=== PATIENT | female | born 1935 | race Caucasian/White ===

== ENCOUNTER → 2018-12-25 | Outpatient (CLI) | payer MEDICARE ==
--- NOTE | 2018-12-25 13:13 | Diagnostic Imaging Report ---
Exam: KUB Clinical history: History of UTI Findings: There is nonobstructive bowel gas pattern with retained feces in the colon. No radiopaque stones are noted along the course of bilateral renal collecting systems. Degenerative changes of the upper lumbar spine are noted. Signed by: Dr. Dave Montenegro MD on 12/25/2018 1:10 PM
--- NOTE | 2018-12-25 13:25 | Diagnostic Imaging Report ---
Renal ultrasound Clinical History: UTI Discussion: Sonographic evaluation of the kidneys is performed. The kidneys have normal size and cortical echogenicity. The right kidney measures 9.2 cm in length. The left kidney measures 10.9 cm in length. There is no hydronephrosis or shadowing renal calculus. In the interpolar region right kidney, a 2.8 x 1.8 x 2.9 cm anechoic lesion is noted. In the interpolar region left kidney, a 2.6 x 1.3 x 2.5 cm anechoic lesion is also noted. These are most compatible with cysts. No perinephric fluid collection is seen. Survey images of the bladder demonstrate no abnormality. Impression: 1. Bilateral renal cysts, otherwise, unremarkable renal ultrasound. Signed by: Dr. Dave Montenegro MD on 12/25/2018 1:22 PM
== END ==
LOC: US 11:55
PROVIDERS: ATTEND Urology
DX: N39.0 Urinary tract infection, site not specified (principal)
CPT/HCPCS: 74018; 76770

== ENCOUNTER 2019-02-03 11:48 | Inpatient (IN) | payer MEDICARE ==
[2019-01-31 14:30] LABS: BASOPHILS % 0.5 % (0.0-1.0); EOSINOPHILS # (AUTO) 0.1 (0.0-0.4); EOSINOPHILS % 2.3 % (0.0-6.0); HEMATOCRIT 31.4 % (34.2-44.1); LYMPHOCYTES # (AUTO) 0.9 (1.0-3.2); MEAN CORPUSCULAR HEMOGLOBIN 27.6 pg (28-32); MEAN CORPUSCULAR HGB CONC 31.8 g/dL (31-35); MEAN CORPUSCULAR VOLUME 86.7 fL (81-99); MONOCYTES # (AUTO) 0.4 (0.2-0.8); MONOCYTES % 9.4 % (4.4-11.3); NEUTROPHILS # (AUTO) 2.9 (2.1-6.9); NEUTROPHILS % 66.6 % (38.7-80.0); PLATELET COUNT 221 x10e3/uL (140-360); RED BLOOD COUNT 3.62 x10e6/uL (3.6-5.1); RED CELL DISTRIBUTION WIDTH 14.6 % (11.7-14.4)
[2019-01-31 14:49] LABS: ANION GAP 11.6 mmol/L (8-16); BLOOD UREA NITROGEN 8 mg/dL (7-26); BUN/CREATININE RATIO 10 (6-25); CALCIUM 8.8 mg/dL (8.4-10.2); CARBON DIOXIDE 26 mmol/L (22-29); CHLORIDE 104 mmol/L (98-107); CREATININE, SERUM 0.79 mg/dL (0.57-1.11); EST GLOMERULAR FILTRATION RATE > 60 ML/MIN (60-); GLUCOSE 83 mg/dL (74-118); POTASSIUM 3.6 mmol/L (3.5-5.1); SODIUM 138 mmol/L (136-145)
--- NOTE | 2019-01-31 15:30 | Diagnostic Imaging Report ---
EXAMINATION: CHEST 2 VIEWS INDICATION: Preop COMPARISON: None FINDINGS: TUBES and LINES: None. LUNGS: Lungs are well inflated. Lungs are clear. There is no evidence of pneumonia or pulmonary edema. PLEURA: No pleural effusion or pneumothorax. HEART AND MEDIASTINUM: The cardiomediastinal silhouette is unremarkable. There are atherosclerotic calcifications within the aorta. BONES AND SOFT TISSUES: There are degenerative changes in the spine and shoulders. Soft tissues are unremarkable. UPPER ABDOMEN: No free air under the diaphragm. IMPRESSION: No acute thoracic radiographic abnormality. Signed by: Benton Pop DO on 01/31/2019 3:27 PM
[~2019-02-03] VITALS: Ht 157.5 cm; Wt 68.0 kg
[~2019-02-03 11:48] MED LIST: AMIODARONE HCL200 MG PO; ATIVAN1 MG PO; CYMBALTA30 MG PO; DOXAZOSIN MESYLA2 MG PO; LEVOTHYROXINE75 MCG PO; METOPROLOL TART25 MG PO; PRIMIDONE1 GM PO; XARELTO20 MG PO
--- OUTSIDE RECORDS SUMMARY | 2019-02-03 11:51 | XMS REPORT ---
Author Author [facility] Address Unknown Phone Unavailable Care Team Providers Care Molding Line Operator Name Role Phone NUBIA PORTER Unavailable Unavailable Problems This patient has no known problems. Allergies, Adverse Reactions, Alerts This patient has no known allergies or adverse reactions. Medications This patient has no known medications. Results Test Description Test Time Test Comments Text Results Atomic Results Result Comments CHEST 2 VIEWS 2019-01-31 15:25:00 [facility] [address] [place] [address] Patient Name: NAI HEWITT MR #: [id number] : 1935 Age/Sex: 83/F Req #: [id number] [facility] Physician: Ordered by: NUBIA PORTER MD Report #: [id number] Location: OR Room/Bed: Procedure: [id number] DX/CHEST 2 VIEWS Exam Date: 01/31/19 Exam Time: 1429 REPORT STATUS: Signed EXAMINATION: CHEST 2 VIEWS INDICATION: Preop COMPARISON: None FINDINGS: TUBES and LINES: None. LUNGS: Lungs are well inflated. Lungs are clear. There is no evidence of pneumonia or pulmonary edema. PLEURA: No pleural effusion or pneumothorax. HEART AND MEDIASTINUM: The cardiomediastinal silhouette is unremarkable. There are atherosclerotic calcifications within the aorta. BONES AND SOFT TISSUES: There are degenerative changes in the spine and shoulders. Soft tissues are unremarkable. UPPER ABDOMEN: No free air under the diaphragm. IMPRESSION: No acute thoracic radiographic abnormality. Signed by: Benton Pop DO on 01/31/2019 3:27 PM Dictated By: BENTON POP DO 26 Transcribed By: SUZETTE on 01/31/191526 COPY TO: NUBIA PORTER MD US RENAL RETROPERITONEAL COMP 2018-12-25 13:21:00 [place] [address] Patient Name: NAI HEWITT MR #: [id number] : 1935 Age/Sex: 83/F Req #: [id number] Adm Physician: Ordered by: NUBIA PORTER MD Report #: [id number] Location: US Room/Bed: Procedure: [id number] US/US RENAL RETROPERITONEAL COMP Exam Date: Exam Time: REPORT STATUS: Signed Renal ultrasound Clinical History: UTI Discussion: Sonographic evaluation of the kidneys is performed. The kidneys have normal size and cortical echogenicity. The right kidney measures 9.2 cm in length. The left kidney measures 10.9 cm in length. There is no hydronephrosis or shadowing renal calculus. In the interpolar region right kidney, a 2.8 x 1.8 x 2.9 cm anechoic lesion is noted. In the interpolar region left kidney, a 2.6 x 1.3 x 2.5 cm anechoic lesion is also noted. These are most compatible with cysts. No perinephric fluid collection is seen. Survey images of the bladder demonstrate no abnormality. Impression: 1. Bilateral renal cysts, otherwise, unremarkable renal ultrasound. Signed by: Dr. Dave Montenegro MD on 12/25/2018 1:22 PM Dictated By: SAMANTHA MONTENEGRO MD 21 Transcribed By: SUZETTE on 12/25/181321 COPY TO: NUBIA PORTER MD ABDOMEN-1VIEW (KUB) 2018-12-25 13:07:00 [place] [address] Patient Name: NAI HEWITT MR #: [id number] : 1935 Age/Sex: 83/F Req #: [id number] Adm Physician: Ordered by: NUBIA PORTER MD Report #: [id number] Location: Room/Bed: Procedure: [id number] DX/ABDOMEN-1VIEW (KUB) Exam Date: 12/25/18 Exam Time: 1155 REPORT STATUS: Signed Exam: KUB Clinical history: History of UTI Findings: There is nonobstructive bowel gas pattern with retained feces in the colon. No radiopaque stones are noted along the course of bilateral renal collecting systems. Degenerative changes of the upper lumbar spine are noted. Signed by: Dr. Dave Montenegro MD on 12/25/2018 1:10 PM Dictated By: MARINA MONTENEGRO MD 09 Transcribed By: SUZETTE on 12/25/181309 COPY TO: NUBIA PORTER MD
[2019-02-03] MEDS ORDERED: GENTAMICIN 80MG/NS 100 ML 100 ML IV ONE (11:56)
[2019-02-03] MEDS ORDERED: PIPER-TAZ 3.375 GM 50 ML ONE (11:56)
[2019-02-03] MEDS ORDERED: DEXAMETHASONE SOD PHOS INJ 4 MG/ML VIAL ONE (12:53)
[2019-02-03] MEDS ORDERED: ONDANSETRON HCL INJ 2MG/ML 2ML 2 MG/ML VIAL ONE (12:53)
[2019-02-03] MEDS ORDERED: SEVOFLURANE INHAL SOLN 250 ML PEN BTL ONE (12:53)
[2019-02-03] MEDS ORDERED: ACETAMINOPHEN 1000 MG/100 ML IV ONE (12:53)
[2019-02-03] MEDS ORDERED: PROPOFOL IV EMULSION 10 MG/ML 20 ML VIAL ONE (12:53)
[2019-02-03] MEDS ORDERED: EPHEDRINE SULFATE INJ 50 MG/ML VIAL ONE (12:53)
[2019-02-03] MEDS ORDERED: LIDOCAINE HCL 2% LOCAL INJ 5 ML SDV VIAL INJ ONE (12:53)
[2019-02-03] MEDS ORDERED: BUPIVACAINE 0.5%/EPI 30 ML SDV INJ ONE (13:26)
[2019-02-03] MEDS ORDERED: IOPAMIDOL 300MG/ML 50ML INFUS..BTL IV ONE (13:26)
[2019-02-03] MEDS ORDERED: BUPIVACAINE 0.25% 30ML SDV INJ ONE (13:26)
[2019-02-03] MEDS ORDERED: BACITRACIN 50,000 UNIT VIAL ONE (13:27)
[2019-02-03] MEDS ORDERED: FENTANYL CITRATE/PF 100MCG/2 ML INJ ONE (14:45)
[2019-02-03] MEDS: D5.45%NS/KCL 20MEQ 1,000 ML IV SCH (16:59)
[2019-02-03] MEDS ORDERED: ONDANSETRON HCL INJ 2MG/ML 2ML 2 MG/ML VIAL IV PRN (17:00)
[2019-02-03] MEDS ORDERED: MORPHINE SULFATE 1 MG/ML 30ML PCA IV PRN (17:00)
[2019-02-03] MEDS ORDERED: DIPHENHYDRAMINE HCL 25 MG CAP PO PRN (17:00)
[2019-02-03] MEDS: DOCUSATE SODIUM 100 MG CAP PO SCH (17:00)
[2019-02-03] MEDS ORDERED: NALOXONE HCL INJ 0.4 MG/ML AMP IV PRN (17:00)
[2019-02-03 18:19] VITALS: BP 171/74
[2019-02-03 18:20] VITALS: BP 171/74
--- NOTE | 2019-02-03 18:29 | NUR ---
ARRIVED VIA STRETCHER FROM PACU, AA&OX3, RA, IV INTACT, CEMENT MIXER DRIVER IN USE, VERIFIED WITH PACU NURSE, ABD PAIN 7 AT THIS TIME, ABD DRESSING INTACT, CIRCULAR AREA OF BLOODY DRAINAGE NOTED, VAGINAL PACKING NOTED, 22FR TAYLOR TO BSD WITH CLEAR YELLOW URINE NOTED, BILAT SCD'S IN PLACE, ORIENTED TO ROOM AND CALL LIGHT SYSTEM, CALL LIGHT WITHIN REACH, FAMILY AT SIDE
--- NOTE | 2019-02-03 19:00 | NUR ---
RECEIVED PATIENT IN BEDSIDE REPORT. PATIENT RESTING IN BED, STATES PAIN IS 6/10. DEMONSTRATED USE OF BARREL BURNER PUMP. BARREL BURNER PUMP 2-NURSE CHECK DONE. TAYLOR DRAINING CLEAR, YELLOW URINE. AREA OF BLEEDING TO LOWER ABD DRESSING CIRCLED, WILL CONTINUE TO MONITOR. NO S&S OF DISTRESS NOTED. BED LOCKED IN LOWEST POSITION, SIDE RAILS UPX2, CALL LIGHT IN REACH.
[2019-02-03 20:00] VITALS: BP 135/63
--- NOTE | 2019-02-03 21:00 | NUR ---
DRESSING TO LOWER ABD CHECKED, NEW BLEEDING NOTED AROUND CIRCLED AREA. CIRCLED NEW AREA. REINFORCED DRESSING WITH 4X4 AND TAPE TO INCREASE PRESSURE ON INCISION. WILL CONTINUE TO MONITOR.
[2019-02-03 21:19] VITALS: BP 135/63
[2019-02-03] MEDS: PIPERACILLIN/TAZO 2.25 GM 50 ML IV SCH (22:36)
[2019-02-04] VITALS (8 sets, daily range): BP systolic 91–115; BP diastolic 44–63
[2019-02-04] MEDS: D5.45%NS/KCL 20MEQ 1,000 ML IV SCH (04:22)
[2019-02-04 05:30] LABS: BASOPHILS % 0.1 % (0.0-1.0); HEMATOCRIT 30.6 % (34.2-44.1); HEMOGLOBIN 9.5 g/dL (12.0-16.0); LYMPHOCYTES # (AUTO) 0.4 (1.0-3.2); LYMPHOCYTES % 5.1 % (18.0-39.1); MEAN CORPUSCULAR HEMOGLOBIN 27.4 pg (28-32); MEAN CORPUSCULAR VOLUME 88.2 fL (81-99); MONOCYTES # (AUTO) 0.4 (0.2-0.8); MONOCYTES % 4.7 % (4.4-11.3); NEUTROPHILS # (AUTO) 7.1 (2.1-6.9); NEUTROPHILS % 89.7 % (38.7-80.0); PLATELET COUNT 181 x10e3/uL (140-360); RED BLOOD COUNT 3.47 x10e6/uL (3.6-5.1); RED CELL DISTRIBUTION WIDTH 14.6 % (11.7-14.4)
[2019-02-04] MEDS: PIPERACILLIN/TAZO 2.25 GM 50 ML IV SCH ×3 (06:18→22:23)
[2019-02-04 07:01] LABS: ANION GAP 11.3 mmol/L (8-16); CALCIUM 8.3 mg/dL (8.4-10.2); CREATININE, SERUM 0.9 mg/dL (0.57-1.11); POTASSIUM 4.3 mmol/L (3.5-5.1)
--- NOTE | 2019-02-04 07:07 | NUR ---
walking rounds completed with shift lab technician RN, pt has no complaints at this time, no signs of distress. will continue to monitor.
[2019-02-04] MEDS: DOCUSATE SODIUM 100 MG CAP PO SCH ×2 (09:59→16:49)
[2019-02-04] MEDS: AMIODARONE HCL 200 MG TAB PO SCH (09:59)
[2019-02-04] MEDS: METOPROLOL TARTRATE 25 MG TAB PO SCH ×2 (10:00→16:49)
[2019-02-04] MEDS: DULOXETINE HCL 30 MG DELAYED RELEASE PO SCH (10:00)
[2019-02-04] MEDS: SODIUM CHLORIDE 0.9% 1000ML 1,000 ML IV SCH ×2 (10:01→22:23)
[2019-02-04] MEDS: ACETAMINOPHEN/CODEINE 300MG - 30MG TAB PO PRN ×3 (13:04→21:29)
--- NOTE | 2019-02-04 13:30 | NUR ---
Visit made by the Spiritual Care Department Pastoral Visitor, Erika Hastings. PV provided pastoral presence, prayer, hospitality, and supportive listening. Pastoral Visitor informed pt/family of the scope of [employer] and availability. HANK CUNNINGHAM Guest Service Representative Spiritual Care Department O: [phone] Pager: [phone] ([phone] number calling from)
--- NOTE | 2019-02-04 15:51 | NUR ---
pt c/o nausea and upper abd cramping; will give Zofran. pt states she feels like it is indigestion with frequent burping of gas. will continue to monitor.
--- NOTE | 2019-02-04 16:00 | NUR ---
vaginal packing removed per MD's orders. pt tolerated well.
--- NOTE | 2019-02-04 16:39 | NUR ---
Spoke to patient and ASHLEY selby, concerned about returning home alone with lugo. Spoke to Dr. Velázquez, order for HH received. In network facilities given to patient, patient [facility] faxed to [phone] Addendum: 02/04/19 at 1640 by Josy Ray conf received
--- NOTE | 2019-02-04 19:00 | NUR ---
RECEIVED PATIENT IN BEDSIDE REPORT. PATIENT REPORTS PAIN IS 7/10 IN HER ABDOMEN, BUT LESSENS EACH TIME SHE PASSES GAS. TAYLOR DRAINING CLEAR, YELLOW URINE TO GRAVITY. DRESSING TO ABDOMEN HAS NO CHANGES SINCE YESTERDAY, DRIED BLOOD NOTED, NO NEW BLOOD NOTED. IV TO R FA ASYMPTOMATIC, INTACT, AND PATENT RUNNING NS @ 100ML/HR. BED LOCKED IN LOWEST POSITION, SIDE RAILS UPX2, CALL LIGHT IN REACH.
[2019-02-04] MEDS: LEVOTHYROXINE SODIUM 75 MCG TAB PO SCH (20:38)
[2019-02-05] VITALS (9 sets, daily range): BP systolic 96–145; BP diastolic 46–73
[2019-02-05] MEDS: ACETAMINOPHEN/CODEINE 300MG - 30MG TAB PO PRN ×3 (03:10→17:11)
[2019-02-05 05:24] LABS: BASOPHILS % 0.2 % (0.0-1.0); EOSINOPHILS # (AUTO) 0.1 (0.0-0.4); EOSINOPHILS % 0.9 % (0.0-6.0); HEMATOCRIT 27.3 % (34.2-44.1); HEMOGLOBIN 8.2 g/dL (12.0-16.0); LYMPHOCYTES # (AUTO) 1.1 (1.0-3.2); LYMPHOCYTES % 21.3 % (18.0-39.1); MEAN CORPUSCULAR HEMOGLOBIN 27.3 pg (28-32); MONOCYTES # (AUTO) 0.7 (0.2-0.8); MONOCYTES % 12.5 % (4.4-11.3); NEUTROPHILS # (AUTO) 3.5 (2.1-6.9); NEUTROPHILS % 64.9 % (38.7-80.0); PLATELET COUNT 156 x10e3/uL (140-360); RED CELL DISTRIBUTION WIDTH 14.9 % (11.7-14.4)
[2019-02-05 05:42] LABS: ANION GAP 11.2 mmol/L (8-16); BLOOD UREA NITROGEN 8 mg/dL (7-26); BUN/CREATININE RATIO 10 (6-25); CALCIUM 8.1 mg/dL (8.4-10.2); CARBON DIOXIDE 25 mmol/L (22-29); CHLORIDE 112 mmol/L (98-107); CREATININE, SERUM 0.81 mg/dL (0.57-1.11); EST GLOMERULAR FILTRATION RATE > 60 ML/MIN (60-); GLUCOSE 89 mg/dL (74-118); POTASSIUM 4.2 mmol/L (3.5-5.1); SODIUM 144 mmol/L (136-145)
[2019-02-05] MEDS: PIPERACILLIN/TAZO 2.25 GM 50 ML IV SCH (06:19)
--- NOTE | 2019-02-05 07:11 | NUR ---
bedside walking rounds completed, change of shift report received, pt sleeping, easily aroused, no complaints at this time.
[2019-02-05] MEDS: DOCUSATE SODIUM 100 MG CAP PO SCH ×2 (09:22→17:30)
[2019-02-05] MEDS: AMIODARONE HCL 200 MG TAB PO SCH (09:23)
[2019-02-05] MEDS: METOPROLOL TARTRATE 25 MG TAB PO SCH ×2 (09:24→17:30)
[2019-02-05] MEDS: DULOXETINE HCL 30 MG DELAYED RELEASE PO SCH (09:24)
[2019-02-05] MEDS ORDERED: ONDANSETRON HCL INJ 2MG/ML 2ML 2 MG/ML VIAL IV PRN (09:30)
--- NOTE | 2019-02-05 09:46 | NUR ---
lugo discontinued per MD's orders; 350 ml output noted. pt tolerated well. pt due to void within 6 hours.
[2019-02-05] MEDS: CEFTRIAXONE SOD 1 GM/NS 50 ML 50 ML IV SCH (11:01)
--- NOTE | 2019-02-05 12:11 | NUR ---
MARGARITO FROM DR. PORTER FOR PT TO DISCHARGE HOME.
--- NOTE | 2019-02-05 12:12 | NUR ---
SPOKE WITH DR GANDARA AND INFORMED HIM PT HAS NOT VOIDED SINCE REMOVAL OF TAYLOR IN THE AM; HE STATES PT WILL MOST LIKELY GO HOME TOMORROW, BUT MAY NEED TAYLOR REPLACED. WILL CONTINUE TO MONITOR.
--- NOTE | 2019-02-05 12:34 | NUR ---
PT DISCUSSED IN ROUNDS HOME HEALTH IS SET UP PT IS TO DC TODAY
--- NOTE | 2019-02-05 15:24 | NUR ---
BLADDER SCAN COMPLETED PER MD'S ORDER. PT STATES SHE WILL TRY AMBULATING TO INITIATE VOIDING. PT HAS YET TO VOID SINCE REMOVAL OF TAYLOR TODAY IN THE AM. WILL PAGE DR. PORTER FOR ORDERS. Addendum: 02/05/19 at 1539 by Asif Amos RN BLADDER SCAN SHOWED 727 ML OF URINE.
--- NOTE | 2019-02-05 15:54 | NUR ---
CALLBACK FROM DR PORTER, HE STATES REINSERT CLAUDIA, PT CAN HAVE LEG BAG DURING THE DAY AND BEDSIDE BAG AT NIGHT, OTHERWISE PT OKAY TO BE DISCHARGED FROM HIS STANDPOINT.
--- NOTE | 2019-02-05 17:24 | NUR ---
16 SLOVENIAN TAYLOR CATHETER PLACED WITH GEORGE COHEN RN AT BEDSIDE. ASEPTIC TECHNIQUE USED. PT TOLERATED WELL.
--- NOTE | 2019-02-05 18:55 | NUR ---
CHANGE OF SHIFT REPORT GIVEN, TAYLOR IN PLACE, DRAINING CLEAR, YELLOW URINE. PT AWAKE, ALERT, NO SIGNS OF DISTRESS, RESTING COMFORTABLY IN BED, IN STABLE CONDITION.
[2019-02-05] MEDS: LEVOTHYROXINE SODIUM 75 MCG TAB PO SCH (20:02)
[2019-02-06] VITALS: BP 122/56
[2019-02-06 04:00] VITALS: BP 138/63
[2019-02-06 05:17] LABS: BASOPHILS % 0.4 % (0.0-1.0); EOSINOPHILS # (AUTO) 0.2 (0.0-0.4); EOSINOPHILS % 3.3 % (0.0-6.0); HEMOGLOBIN 8.7 g/dL (12.0-16.0); LYMPHOCYTES # (AUTO) 1.3 (1.0-3.2); LYMPHOCYTES % 24.8 % (18.0-39.1); MEAN CORPUSCULAR HEMOGLOBIN 27.3 pg (28-32); MEAN CORPUSCULAR VOLUME 90.9 fL (81-99); MONOCYTES # (AUTO) 0.6 (0.2-0.8); MONOCYTES % 11.1 % (4.4-11.3); NEUTROPHILS # (AUTO) 3.1 (2.1-6.9); NEUTROPHILS % 60.2 % (38.7-80.0); PLATELET COUNT 173 x10e3/uL (140-360); RED BLOOD COUNT 3.19 x10e6/uL (3.6-5.1); RED CELL DISTRIBUTION WIDTH 14.7 % (11.7-14.4)
[2019-02-06 05:36] LABS: BLOOD UREA NITROGEN 7 mg/dL (7-26); BUN/CREATININE RATIO 8 (6-25); CALCIUM 8.1 mg/dL (8.4-10.2); CARBON DIOXIDE 29 mmol/L (22-29); CHLORIDE 105 mmol/L (98-107); CREATININE, SERUM 0.84 mg/dL (0.57-1.11); EST GLOMERULAR FILTRATION RATE > 60 ML/MIN (60-); GLUCOSE 95 mg/dL (74-118); SODIUM 141 mmol/L (136-145)
--- NOTE | 2019-02-06 07:00 | NUR ---
Received patient lying in bed with eyes open. Respiration even and unlabored without SOB. Call light in reach.
[2019-02-06 08:03] VITALS: BP 134/60
[2019-02-06] MEDS: DOCUSATE SODIUM 100 MG CAP PO SCH (08:56)
[2019-02-06] MEDS: AMIODARONE HCL 200 MG TAB PO SCH (08:56)
[2019-02-06] MEDS: DULOXETINE HCL 30 MG DELAYED RELEASE PO SCH (08:57)
[2019-02-06] MEDS: METOPROLOL TARTRATE 25 MG TAB PO SCH (08:57)
[2019-02-06] MEDS: CEFTRIAXONE SOD 1 GM/NS 50 ML 50 ML IV SCH (08:58)
[2019-02-06 10:00] VITALS: BP 134/60
--- NOTE | 2019-02-06 10:00 | NUR ---
ASSESSMENT: Spiritual concern Pt expressed concerns for her health. Intervention: Provided empathic listening and prayer. Outcome: Pt expressed appreciation for visit. HANK CUNNINGHAM [employer] Spiritual Care Department O: [phone] Pager: [phone] ([phone] number calling from)
[2019-02-06] MEDS ORDERED: ONDANSETRON HCL 4 MG ORAL DISINTEGRATING TAB PO PRN (11:00)
[2019-02-06 11:27] LABS: LYMPHOCYTES % (MANUAL) 31 % (19-48); MONOCYTES % (MANUAL) 4 % (3.4-9.0); NEUTROPHILS % (MANUAL) 65 % (40-74); PLATELET MORPHOLOGY COMMENT NORMAL; RBC MORPHOLOGY COMMENT NORMAL
[2019-02-06 11:28] LABS: PLATELET ESTIMATE ADEQUATE
[2019-02-06 11:56] VITALS: BP 147/65
[2019-02-06 15:47] VITALS: BP 122/58
--- NOTE | 2019-02-06 18:40 | NUR ---
Spoke with Dr. Espinoza. Given orders to discharge patient with the lugo.
[2019-02-06] MEDS: LEVOTHYROXINE SODIUM 75 MCG TAB PO SCH (20:08)
[2019-02-06] MEDS: ACETAMINOPHEN/CODEINE 300MG - 30MG TAB PO PRN (20:09)
--- NOTE | 2019-02-06 20:32 | NUR ---
Patient was discharged in good condition.
--- NOTE | 2019-03-15 18:00 | Operative Report ---
DATE OF PROCEDURE: 02/03/2019 SURGEON: Julio Velázquez MD PREOPERATIVE DIAGNOSES: 1. Stress incontinence. 2. Grade 3 cystocele. 3. Urinary tract infections. POSTOPERATIVE DIAGNOSES: 1. Stress incontinence. 2. Grade 3 cystocele. 3. Urinary tract infections. 4. 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 OPERATIONS PERFORMED: 1. Urethrolysis (separate procedure performed to relieve the obstruction caused by scar that is wrapped around the distal urethra). 2. Repair of large cystocele. 3. Utilization of a graft and cystocele repair. 4. Pubovaginal sling utilizing homograft. 5. Cystourethroscopy with bilateral ureteral catheterization and retrograde ureteropyelography. 6. Interpretation of retrograde ureteropyelography, no radiologist present. 7. Supervision of fluoroscopy, no radiologist present. ANESTHESIA: General. COMPLICATIONS: None. CLINICAL SUMMARY: Melody Swan is an 83-year-old woman, who has had the above preoperative diagnoses. She has a large postvoid residual of 170 mL consistent with the bladder outlet obstruction. She is brought for the above procedures. She is aware of the risks of bleeding, infection, injury to adjacent structures, need for additional procedures, need for catheterization, and she elected to proceed. OPERATIVE PROCEDURE IN DETAIL: Informed consent was verified. Melody Swan was properly identified, taken to the operating room, and placed on the operating table in supine position. Anesthesia was uneventfully begun. The patient was then carefully and gently repositioned in the dorsal lithotomy position with all pressure points well padded. Her abdomen, genitalia, and perineum were shaved, prepared, and draped in usual sterile fashion. Labial stay sutures were utilized. Vaginal speculum was then utilized. Marcaine with epinephrine was utilized to infiltrate submucosally along the anterior vaginal wall. We then made a midline incision throughout the extent of the anterior vaginal wall, created bilateral vaginal wall flaps. Submucosal examination revealed that there was scar tissue wrapping around the distal urethra. The scarring has caused problem to skin and obviously from prior procedures. We performed urethrolysis and released the scar tissue, and then one could see almost the pop when the urethra was released. Once proper mobility was accomplished, we then finished dissecting vaginal wall flaps bilaterally. We then pierced the endopelvic fascia laterally taking care to stay away from the neurovascular periurethral complexes. We then performed a cystocele repair for this grade 3 cystocele by utilizing heavy Vicryl suture and plicating from the bladder neck to the cephalad most extent of the anterior vaginal wall. This resulted in complete reduction of the patient's grade 3 cystocele. The bladder was drained. Garrett catheter and a fascia esequiel graft was then cut to shape and rehydrated in antibiotic solution. PDS suture was then placed through each end of the graft and then the LawPivot needle system was then utilized. Utilized the first on the left and then on the right. We hung the posterior surface of the pubis and then pierced through the anterior abdominal musculature. Then, the needle was disconnected and through the 2nd islet, we placed the PDS suture pair strands and then dragging through the entirely anterior abdominal wall in the suprapubic area by pulling the needle. This maneuver was performed first on the left hand side and then on the right hand side. We then utilized chromic suture to secure the graft in such a way that it should not migrate. We then took the distal portion of the graft and passed it into the distal urethra, thus performing a pubovaginal sling. We then utilized the lateral suture passer to take one strand of each PDS suture and tunnel it subcutaneously suprapubically to join its contralateral counterpart. We then tied down the sutures to the level of the patient's skin, thus ensuring a non-lifting, non-constricting sling. We then infiltrated the abdominal incisions with local anesthetic, copiously irrigated and then approximated with heavy Vicryl sutures. The excess vaginal wall was trimmed minimally and the vaginal incision was approximated with heavy Vicryl suture in running fashion. Garrett catheter was withdrawn. Cystoscope was inserted. Panendoscopy revealed no suspicious lesions, no tumors, no stones, no diverticula, mild trabeculations noted. An 8-Djiboutian catheter was used to cannulate each ureter and retrograde ureteropyelogram was performed. Interpretation of retrograde ureteropyelography contrast was instilled in retrograde fashion bilaterally. 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 Unobstructed drainage was observed fluoroscopically bilaterally. The right-sided hydronephrosis may be attributed to the patient's longstanding obstruction and high pressure voiding. Long-term followup of this hydronephrosis will be required. The cystoscope was withdrawn. Garrett catheter was placed. Vaginal packing with antibiotic ointment was placed. Labial stay sutures were removed those were applied and the patient uneventfully reversed from anesthesia and taken to recovery room in stable condition. There were no complications to the procedure. The patient tolerated the procedure well. Sponge, needle, and instrument counts were correct x2 at the end of the case. We will proceed with routine postoperative care and of course lifelong urological followup. Julio Velázquez MD [place]/MODL /[id number]
== END 2019-02-06 20:38 | disposition home or self-care (01) | DRG 748 ==
LOC: OR 11:48 → MED/SURG 17:00
PROVIDERS: ADMIT Internal Medicine; ATTEND Internal Medicine
PROC: 0TSD0ZZ Reposition Urethra, Open Approach (ICD-10-PCS; 2019-02-03)
PROC: BT141ZZ Fluoroscopy of Kidneys, Ureters and Bladder using Low Osmolar Contrast (ICD-10-PCS; 2019-02-03)
PROC: 0JUC0JZ Supplement of Pelvic Region Subcutaneous Tissue and Fascia with Synthetic Substitute, Open Approach (ICD-10-PCS; principal; 2019-02-03 14:00)
PROC: 0TND0ZZ Release Urethra, Open Approach (ICD-10-PCS; 2019-02-03 14:00)
DX: N81.10 Cystocele, unspecified (principal); N39.0 Urinary tract infection, site not specified; N81.89 Other female genital prolapse; N95.2 Postmenopausal atrophic vaginitis; R39.16 Straining to void; R39.14 Feeling of incomplete bladder emptying; R39.12 Poor urinary stream; N81.6 Rectocele; N36.41 Hypermobility of urethra; N28.1 Cyst of kidney, acquired; N39.46 Mixed incontinence; N13.5 Crossing vessel and stricture of ureter without hydronephrosis; E03.9 Hypothyroidism, unspecified; K21.9 Gastro-esophageal reflux disease without esophagitis; I50.9 Heart failure, unspecified; F41.9 Anxiety disorder, unspecified; F32.9 Major depressive disorder, single episode, unspecified; I48.0 Paroxysmal atrial fibrillation; D64.9 Anemia, unspecified
CPT/HCPCS: 36415; 71046; 74420; 80048; 85025; 93005; C1752; C1758; J0696; J1100; J1580; J2001; J2270; J2405; J2543; J3010; J7030

== ENCOUNTER → 2020-04-14 | Outpatient (CLI) | payer MEDICARE | LOC: US 12:19 | PROVIDERS: ATTEND Urology | DX: N28.1 Cyst of kidney, acquired (principal) | CPT/HCPCS: 76770 ==

== ENCOUNTER → 2021-05-02 | Outpatient (CLI) | payer MEDICARE | LOC: US 13:27 | PROVIDERS: ATTEND Urology | DX: N28.1 Cyst of kidney, acquired (principal) | CPT/HCPCS: 76770 ==